=== PATIENT | female | born 1940 | race Caucasian/White ===

== ENCOUNTER 2022-09-30 11:09 | Outpatient (CLI) | payer MEDICARE, SELFPAY ==
[2022-09-30 21:28] LABS: Albumin* 3.9 g/dL (3.3-5.0); Chloride* 105 mmol/L (96-114)
[2022-09-30 21:29] LABS: Potassium* 3.7 mmol/L (3.6-5.1); Sodium* 140 mmol/L (135-149)
[2022-09-30 21:31] LABS: Aspartate Amino Transferase* 157 U/L (12-35); Bilirubin Total* 0.5 mg/dL (0.1-1.5); Blood Urea Nitrogen* 11 mg/dL (7-30); Carbon Dioxide* 31 mmol/L (20-32); Cholesterol* 250 mg/dL (90-199); Creatinine* 0.8 mg/dL (0.5-1.5); Estimated Glomerular Filt Rate 74 ml/min; Glucose* 104 mg/dL (60-115); Total Protein* 6.6 g/dL (6.0-8.3)
[2022-09-30 21:32] LABS: Alanine Aminotransferase* 101 U/L (4-35); Alkaline Phosphatase* 88 U/L (40-150); Calcium* 9.2 mg/dL (8.4-10.6); HDL Cholesterol* 84 mg/dL (>=50); LDL Cholesterol Calculated 136 mg/dL (<100); Triglycerides* 152 mg/dL (40-149)
[2022-09-30 23:15] LABS: Free T4 Free Thyroxine* 0.97 ng/dL (0.70-1.85)
== END 2022-09-30 11:10 | disposition home or self-care (01) ==
PROVIDERS: PCP Physician Assistant Medical; Visit Provider Physician Assistant Medical
DX: D50.8 Other iron deficiency anemias (principal); E03.9 Hypothyroidism, unspecified; E78.2 Mixed hyperlipidemia; I10 Essential (primary) hypertension; E78.5 Hyperlipidemia, unspecified; R79.89 Other specified abnormal findings of blood chemistry; F32.A Depression, unspecified
CPT/HCPCS: 80053; 80061; 84439; 84443

== ENCOUNTER 2022-10-09 14:38 | Outpatient (CLI) | payer MEDICARE, SELFPAY ==
--- NOTE | 2022-10-09 15:00 | CRLHL7_ITS ---
For Patients: As a result of the Century Cures Act, medical imaging exams and procedure reports are released immediately into your electronic medical record. You may view this report before your referring provider. If you have questions, please contact your health care provider. DXA BONE MINERAL DENSITY STUDY Reason for exam: Osteopenia. Current height (in): 60. Weight (lb): 116. Menopause age: 51. Ethnicity: White. 1. Have you had a previous hip or vertebral fracture? No. 2. Have you had any fractures during your adult life which did not result from significant trauma (e.g., auto accident)? No. 3. Did either of your parents have a hip fracture? No. 4. Do you smoke? No. 5. Have you ever taken Glucocorticoids? No. 6. Do you have rheumatoid arthritis? No. 7. Do you have secondary osteoporosis? No. 8. Do you drink 3 or more alcoholic drinks per day? No. 9. Are you being treated for osteoporosis? No. 10. Have you ever taken any of the following medications: Actonel, Evista, Fosamax, Miacalcin, Reclast, Boniva, Forteo, HRT (i.e., estrogen/hormone therapy), Protelos, Prolia, Vitamin D, Calcium, other ??? please specify. ANSWER: Yes, vitamin D. 11. Do you have any of the following medical conditions: Anorexia or bulimia, asthma or emphysema, end stage renal disease, hyperparathyroidism, any seizure disorders, cancer, inflammatory bowel diseases, hysterectomy, other ??? please specify. ANSWER: No. 12. What was your maximum height (inches)? 51.5 13. Do you perform weight bearing exercise regularly? No. 14. Do you regularly consume dairy products? No. 15. Do you drink caffeinated beverages? No. If female: 16. At what age did your period start? 13. 17. Are you premenopausal? No. 18. How many full-term pregnancies have you had? 3. 19. Have you ever missed your period for more than 6 months in a row (not including or menopause)? No. TECHNIQUE: Bone mineral density study was performed using the [employer]. FINDINGS: The results of the study expressed as bone mineral density (BMD) are as follows: Lumbar spine L1 to L2: BMD: 0.938 g/cm2. T-score: -0.4. Z-score: 2.2 Neck Left: BMD: 0.624 g/cm2. T-score: -2.0. Z-score: 0.4 Right: BMD: 0.616 g/cm2. T-score: -2.1. Z-score: 0.3 Total Left: BMD: 0.770 g/cm2. T-score: -1.4. Z-score: 0.7 Right: BMD: 0.723 g/cm2. T-score: -1.8. Z-score: 0.4 IMPRESSION: Osteopenia. *Comparison exams done prior to 01/2020 were performed on different unit, [facility]. COMPARISON: Compared with scan of 01/13/2019, the bone mineral density has increased by 18.9 percent at the spine and decreased by 2.9 percent at the hip. FRAX 10-year Fracture Risk Major Osteoporotic Fracture: 15% Hip Fracture: 4.8% Reported Risk Factors: [place] () Neck BMD=0.616, BMI= 22.7 Jose Antonio Fitzpatrick M.D. Diagnostic Radiologist [email or web address] ARIANA/gris landry/Dictated by: Jose Antonio Fitzpatrick MD @ 10/09/2022 3:40:00 PM (Electronically Signed)
== END 2022-10-09 14:39 | disposition home or self-care (01) ==
LOC: RAD 14:40
PROVIDERS: PCP Physician Assistant Medical; Visit Provider Physician Assistant Medical
DX: M85.89 Other specified disorders of bone density and structure, multiple sites (principal); Z78.0 Asymptomatic menopausal state
CPT/HCPCS: 77080

== ENCOUNTER 2022-10-27 09:45 | Outpatient (RCR) | payer MEDICARE, SELFPAY ==
--- NOTE | 2022-10-02 14:58 | PT.OPDN ---
[facility] Daily Note PT [facility] Daily Note Start: 10/02/22 14:18 Freq: Status: Active Protocol: Document 10/02/22 14:50 BMS (Rec: 10/02/22 14:55 BMS [id number]) E-signed By Sarah Castillo, PT PT OP Daily Progress Note Visit Information Note Type Daily Note Visit Number 1 Insurance Authorized Visits tbd Insurance Information Recert Due Date 12/29/22 Insurance Information/Comments medicare advantage blue Medical Diagnosis bppv H81.10 Treating Diagnosis BPPV B H81.13 cervicalgia M54.2 abnormal gait R 26.89 Subjective Subjective began about 4 weeks ago. happens off and on but notice it with bending forward, looking down, rolling over in bed, standing,looking up, my neck has been extremely painful and think that is where the off balance feeling comes from. also have been having trouble with R eye vision bein blurry, went several places then saw someone who gave me this cover for my R lens and now can see clearly. have depression hit really bad patch and was hospitalized but they got my medication straightened out. having a lot of high stress at home with family issues. it isnt a spinning sensation just very off balanced, comes and goes but hits when I look up, bend over or roll in bed. sometimes even when I am just sitting there. my neck is causing it i am sure of it. my balance is bad also bc I had my R knee replaced and didnt get therapy right away so it never came back all the way Preferred Name Terri Precautions Treatment Precautions/Contraindications Hypertension (Acute) I10 Anemia (Acute) D64.9 Asthma (Acute) J45.909 Osteoporosis (Acute) M81.0 Tension headache (Acute) G44. 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 04 Objective Other/Pertinent Objective + VOR gaze stab deficits, symptoms with forward bend, cervical extension. + R liyah hallpike, + B horizontal testing Functional Test Performed & Score tinetti high fall risk Patient Instructed in Risks/Benefits Yes Manual Therapy Techniques Manual Therapy Minutes (minutes) 10 Manual Therapy Techniques STM MFR to entire neck. PAVM and PIVM to C 3-T1. gentle distraction through subocciput Other Interventions Provided Other Interventions Provided NETWORK RELATIONS CONSULTANT R salvador x 1, R gufoni ageotropic x 1 Other Interventions Timed Minutes 20 Treatment Minutes Untimed Code Treatment Minutes 30 Timed Code Treatment Minutes 30 Total Treatment Time 60 Billing Units Manual Therapy Units 1 Therapeutic Exercise Units 1 Assessment/Impression Assessment/Impression Patient is very pleasant 82 yo female referred for bppv. She reports symptoms of feeling off balance began ~ 4 weeks ago, no injury or specific trigger to onset. Notices with bending forward, standing up, rolling over in bed, looking down to read. Past medical hx + for: depression, TKA, HTN, osteoporosis, OA, asthma and allergies. She also notes blurred vision in her R eye, does not know the name for it but is wearing a prizm type layer on glasses that per patient has cleared her vision . She presents with loss of cervical ROM and significant tightness and pain in neck and head, hx of migraines, reports very high stress level , and states her balance has been very off. Specific tests + for posterior canalithiasis from [place] Hallpike and also vigorous ageotropic nystagmus with R horizontal canal testing. L horizontal also affected with less symptoms and vigor. Did treat with MT to c-spine to be able to attain needed positions for NETWORK RELATIONS CONSULTANT, then with 1 R salvador and 1 right gufoni. extended time required to nystagmus fade and fatigue. After session patient reported feeling better and much less restricted. Plan to see next week to reassess response to todays treatment, for MT and for canalith repositioning as appropriate. Plan of Care Physical Therapy Goals STG meet 2-3 weeks 1) Pt demo I HEP and self care/home mgmt techniques for dizziness adaptation, safety measures, and home safety improvements including picking up throw rugs, night light or commode, and use of gait aid as appropriate. 2) Pt report dizziness limiting activities < 2 episodes in 1 week period. LTG meet 4-6 weeks 1)Pt demo ability to roll over in bed and transition sit/ supine/sit without vertigo. 2) Pt demo ability to bend forward for reaching into freezer with no evidence of imbalance. 3) Pt demo appropriate gait pattern with no path deviation or wall surfing related to vertigo. Daily Plan of Care Continue per POC Daily Plan of Care Comments ongoing POC to consist of canalith repositioning as needed, MT for neck mobility, functional strength and activities TA and TEl, gait and neuro-lazarus for balance
== END 2023-03-12 23:59 | disposition home or self-care (01) ==
PROVIDERS: PCP Physician Assistant Medical; Visit Provider Physician Assistant Medical
DX: H81.13 Benign paroxysmal vertigo, bilateral (principal); I10 Essential (primary) hypertension; J45.909 Unspecified asthma, uncomplicated; M81.0 Age-related osteoporosis without current pathological fracture; G44.209 Tension-type headache, unspecified, not intractable; F32.A Depression, unspecified; M51.36 Other intervertebral disc degeneration, lumbar region; H91.93 Unspecified hearing loss, bilateral; G43.909 Migraine, unspecified, not intractable, without status migrainosus; J30.2 Other seasonal allergic rhinitis; F51.04 Psychophysiologic insomnia; H53.8 Other visual disturbances; M54.2 Cervicalgia; R26.9 Unspecified abnormalities of gait and mobility; D64.9 Anemia, unspecified; Z96.651 Presence of right artificial knee joint; Z51.89 Encounter for other specified aftercare
CPT/HCPCS: 97110; 97112; 97140; 97162

== ENCOUNTER 2023-10-07 09:43 | Outpatient (CLI) | payer MEDICARE, SELFPAY | END 2023-10-07 09:44 | disposition home or self-care (01) | LOC: NFLDREF 22:29 | PROVIDERS: PCP Physician Assistant Medical; Referring Provider Physician Assistant Medical; Visit Provider Physician Assistant Medical | DX: R07.81 Pleurodynia (principal); I10 Essential (primary) hypertension; D64.9 Anemia, unspecified; E03.9 Hypothyroidism, unspecified; E78.5 Hyperlipidemia, unspecified; E78.2 Mixed hyperlipidemia; F32.0 Major depressive disorder, single episode, mild; K21.9 Gastro-esophageal reflux disease without esophagitis; G43.809 Other migraine, not intractable, without status migrainosus; F51.04 Psychophysiologic insomnia; B00.1 Herpesviral vesicular dermatitis; M81.0 Age-related osteoporosis without current pathological fracture | CPT/HCPCS: 80053; 80061; 84443 ==

== ENCOUNTER 2024-12-07 09:32 | Outpatient (CLI) | payer MEDICARE, SELFPAY ==
--- NOTE | 2024-12-07 10:00 | CRLHL7_ITS ---
For Patients: As a result of the Century Cures Act, medical imaging exams and procedure reports are released immediately into your electronic medical record. You may view this report before your referring provider. If you have questions, please contact your health care provider. DXA BONE MINERAL DENSITY STUDY Current height (in): 59. Weight (lb): 112. Menopause age: 51. Ethnicity: White. 1. Have you had a previous hip or vertebral fracture? No. 2. Have you had any fractures during your adult life which did not result from significant trauma (e.g., auto accident)? No. 3. Did either of your parents have a hip fracture? No. 4. Do you smoke? No. 5. Have you ever taken Glucocorticoids? No. 6. Do you have rheumatoid arthritis? No. 7. Do you have secondary osteoporosis? No. 8. Do you drink 3 or more alcoholic drinks per day? No. 9. Are you being treated for osteoporosis? Yes. 10. Have you ever taken any of the following medications: Actonel, Evista, Fosamax, Miacalcin, Reclast, Boniva, Forteo, HRT (i.e. estrogen/hormone therapy), Protelos, Prolia, Vitamin D, Calcium, other ??? please specify. ANSWER: Yes, Vitamin D. 11. Do you have any of the following medical conditions: Anorexia or bulimia, asthma or emphysema, end stage renal disease, hyperparathyroidism, any seizure disorders, cancer, inflammatory bowel diseases, hysterectomy, other ??? please specify. ANSWER: Yes, Asthma or Emphysema, and Cancer (skin cancer). 12. What was your maximum height (inches)? 61.5. 13. Do you perform weight bearing exercise regularly? No. 14. Do you regularly consume dairy products? No. 15. Do you drink caffeinated beverages? No. 16. At what age did your period start? 13. 17. Are you premenopausal? No. 18. How many full term pregnancies have you had? 3. 19. Have you ever missed your period for more than 6 months in a row (not including or menopause)? No. TECHNIQUE: Bone mineral density study was performed using the [employer]. FINDINGS: The results of the study expressed as bone mineral density (BMD) are as follows: Lumbar spine L1-L2: BMD: 1.038 g/cm2. T-score: 0.5. Z-score: 3.2. Neck Left: BMD: 0.628 g/cm2. T-score: -2.0. Z-score: 0.5. Right: BMD: 0.578 g/cm2. T-score: -2.4. Z-score: 0.0. Total Left BMD: 0.777 g/cm/2. T-score: -1.4. Z-score: 0.9. Right: BMD: 0.758 g/cm2. T-score: -1.5. Z-score: 0.8. IMPRESSION: Osteopenia. COMPARISON: Compared with scan of 10/09/2022, the bone mineral density has increased by 10.7 percent at the spine and increased by 2.8 percent at the hip. Compared with scan of 01/13/2029, the bone mineral density has increased by 18.9 percent at the spine and decreased by 2.9 percent at the hip. FRAX 10-year Fracture Risk Major Osteoporotic Fracture: 16 percent Hip Fracture: 5.9 percent Reported Risk Factors: [place] () Neck BMD= 0.578, BMI= 22.6 Anum Montelongo M.D. Diagnostic Radiologist [email or web address] [email or web address]/[email or web address] DW/Dictated by: Anum Montelongo MD @ 12/09/2024 7:28:00 AM (Electronically Signed)
== END 2024-12-07 09:33 | disposition home or self-care (01) ==
LOC: RAD 09:33
PROVIDERS: PCP Physician Assistant Medical; Visit Provider Physician Assistant Medical
DX: M81.0 Age-related osteoporosis without current pathological fracture (principal); M85.89 Other specified disorders of bone density and structure, multiple sites
CPT/HCPCS: 77080